=== PATIENT | female | born 1995 | race Caucasian/White ===

== ENCOUNTER 2017-02-07 23:03 | Emergency (ER) | payer MEDICAID ==
[~2017-02-07] VITALS: Ht 165.1 cm; Wt 79.0 kg
[~2017-02-07 23:03] MED LIST: RANI150T4 PO
[2017-02-07] MEDS ORDERED: SODIUM CHLORIDE FLUSH 10ML SYR IVF ONE (23:30)
[2017-02-07] MEDS ORDERED: MORPHINE SULFATE 4 MG/ML, 1ML IVPush PRN (23:30)
[2017-02-07] MEDS ORDERED: SODIUM CHLORIDE 0.9% 1,000ML IVBOLUS ONE (23:30)
[2017-02-07] MEDS ORDERED: ONDANSETRON 2MG/ML, 2ML IVPush ONE (23:30)
[2017-02-07] MEDS ORDERED: ONDANSETRON 2MG/ML, 2ML ONE (23:37)
[2017-02-07] MEDS ORDERED: MORPHINE SULFATE 4 MG/ML, 1ML ONE (23:37)
[2017-02-08] MEDS ORDERED: TRAZ100T15 PO (00:05)
[2017-02-08] MEDS ORDERED: BIRTH CONTROL PO (00:05)
[2017-02-08] MEDS ORDERED: OMEP-110 PO (00:05)
[2017-02-08] MEDS ORDERED: DICY10CA3 PO (00:05)
[2017-02-08] MEDS ORDERED: PROM12.553 PO (00:05)
[2017-02-08 00:23] LABS: HEMATOCRIT 36.6 % (34.6-47.8); HEMOGLOBIN 12.3 g/dL (11.7-16.4); WHITE BLOOD COUNT 5.9 x10^3/uL (4.5-13.2)
[2017-02-08 00:34] LABS: ASPARTATE AMINO TRANSFERASE 18 U/L (15-37); BLOOD UREA NITROGEN 12 mg/dL (7-18)
[2017-02-08 00:45] VITALS: BP 106/73
== END 2017-02-08 01:19 | disposition home or self-care (01) ==
LOC: ED 23:59
DX: N30.00 Acute cystitis without hematuria (principal)
CPT/HCPCS: 36415; 80053; 81001; 83690; 84703; 85025; 87086; 87147; 96361; 96374; 96375; 99284; J2405; J7030

== ENCOUNTER 2017-10-23 20:40 | Emergency (ER) | payer MEDICAID ==
[~2017-10-23] VITALS: Ht 162.6 cm; Wt 85.3 kg
[~2017-10-23 20:40] MED LIST changes: +BIRTH CONTROL PO; +DICY10CA3 PO; +OMEP-110 PO; +PROM12.553 PO; +TRAZ100T15 PO
[2017-10-23 21:32] LABS: BASOPHILS # (AUTO) 0.04 x10^3/uL (0-0.1); BASOPHILS % (AUTO) 1 % (0-1); EOSINOPHILS # (AUTO) 0.06 x10^3/uL (0-0.4); EOSINOPHILS % (AUTO) 1 % (1-7); LYMPHOCYTES # (AUTO) 2.16 x10^3/uL (1-3.4); LYMPHOCYTES % (AUTO) 25 % (22-44); MD NO; MEAN CORPUSCULAR HEMOGLOBIN 29.8 pg (27.0-34.8); MEAN CORPUSCULAR HGB CONC 34.4 g/dL (32.4-35.8); MEAN CORPUSCULAR VOLUME 86.5 fL (80-100); MEAN PLATELET VOLUME 7.9 fL (7.4-10.4); MONOCYTES # (AUTO) 0.69 x10^3/uL (0.2-0.8); MONOCYTES % (AUTO) 8 % (2-9); NEUTROPHILS # (AUTO) 5.66 x10^3/uL (1.8-6.8); NEUTROPHILS % (AUTO) 66 % (42-75); PLATELET COUNT 216 x10^3/uL (130-400); RED BLOOD COUNT 4.18 x10^6/uL (3.82-5.3); RED CELL DISTRIBUTION WIDTH 13.2 % (9.6-15.2)
[2017-10-23 21:45] LABS: ALANINE AMINOTRANSFERASE 30 U/L (12-78); ALBUMIN 3.2 g/dL (3.4-5.0); ANION GAP 9 mmol/L (5-15); CALCIUM 8.8 mg/dL (8.5-10.1); CHLORIDE 107 mmol/L (98-107); CREATININE 0.61 mg/dL (0.55-1.02)
[2017-10-23 21:47] LABS: ALKALINE PHOSPHATASE 63 U/L (45-117); BILIRUBIN,TOTAL 0.3 mg/dL (0.2-1.0)
[2017-10-23 21:58] LABS: MICROSCOPIC INDICATED
[2017-10-23 21:59] LABS: CULTURE INDICATED? YES
[2017-10-23 22:58] VITALS: BP 122/76
== END 2017-10-23 23:02 | disposition home or self-care (01) ==
LOC: ED 22:56
DX: O26.891 Other specified pregnancy related conditions, first trimester (principal); R10.84 Generalized abdominal pain; M54.5 Low back pain; R82.71 Bacteriuria; Z3A.12 12 weeks gestation of pregnancy
CPT/HCPCS: 36415; 76801; 80053; 81001; 83690; 85025; 87086; 99285

== ENCOUNTER 2017-10-30 00:07 | Emergency (ER) | payer MEDICAID ==
[~2017-10-30] VITALS: Ht 162.6 cm; Wt 80.0 kg
[2017-10-30 01:05] LABS: BASOPHILS # (AUTO) 0.03 x10^3/uL (0-0.1); BASOPHILS % (AUTO) 0 % (0-1); EOSINOPHILS # (AUTO) 0.12 x10^3/uL (0-0.4); EOSINOPHILS % (AUTO) 1 % (1-7); LYMPHOCYTES # (AUTO) 2.16 x10^3/uL (1-3.4); LYMPHOCYTES % (AUTO) 26 % (22-44); MD NO; MEAN CORPUSCULAR HEMOGLOBIN 28.8 pg (27.0-34.8); MEAN CORPUSCULAR HGB CONC 33.3 g/dL (32.4-35.8); MEAN CORPUSCULAR VOLUME 86.6 fL (80-100); MEAN PLATELET VOLUME 8.1 fL (7.4-10.4); MONOCYTES % (AUTO) 7 % (2-9); NEUTROPHILS # (AUTO) 5.36 x10^3/uL (1.8-6.8); NEUTROPHILS % (AUTO) 65 % (42-75); PLATELET COUNT 218 x10^3/uL (130-400)
[2017-10-30 01:17] LABS: ANION GAP 7 mmol/L (5-15); CALCIUM 8.4 mg/dL (8.5-10.1); CHLORIDE 108 mmol/L (98-107); CREATININE 0.52 mg/dL (0.55-1.02)
[2017-10-30 01:53] VITALS: BP 112/68
== END 2017-10-30 01:54 | disposition home or self-care (01) ==
LOC: ED 00:36
DX: O26.891 Other specified pregnancy related conditions, first trimester (principal); K92.0 Hematemesis; Z3A.13 13 weeks gestation of pregnancy
CPT/HCPCS: 36415; 80048; 85025; 99284

== ENCOUNTER 2017-11-02 21:41 | Emergency (ER) | payer MEDICAID ==
[~2017-11-02] VITALS: Ht 162.6 cm; Wt 85.0 kg
[2017-11-02 23:17] LABS: BASOPHILS # (AUTO) 0.03 x10^3/uL (0-0.1); BASOPHILS % (AUTO) 0 % (0-1); EOSINOPHILS % (AUTO) 1 % (1-7); LYMPHOCYTES # (AUTO) 1.91 x10^3/uL (1-3.4); LYMPHOCYTES % (AUTO) 28 % (22-44); MD NO; MEAN CORPUSCULAR HEMOGLOBIN 29.9 pg (27.0-34.8); MEAN CORPUSCULAR HGB CONC 34.3 g/dL (32.4-35.8); MEAN CORPUSCULAR VOLUME 87.2 fL (80-100); MEAN PLATELET VOLUME 8.3 fL (7.4-10.4); MONOCYTES # (AUTO) 0.58 x10^3/uL (0.2-0.8); MONOCYTES % (AUTO) 9 % (2-9); NEUTROPHILS # (AUTO) 4.23 x10^3/uL (1.8-6.8); NEUTROPHILS % (AUTO) 62 % (42-75); PLATELET COUNT 207 x10^3/uL (130-400); RED BLOOD COUNT 4.12 x10^6/uL (3.82-5.3); RED CELL DISTRIBUTION WIDTH 12.9 % (9.6-15.2)
[2017-11-02 23:22] LABS: ALBUMIN 3.1 g/dL (3.4-5.0); ANION GAP 7 mmol/L (5-15); CHLORIDE 109 mmol/L (98-107); CREATININE 0.58 mg/dL (0.55-1.02)
[2017-11-03 00:19] VITALS: BP 111/76
== END 2017-11-03 00:21 | disposition home or self-care (01) ==
LOC: ED 21:56
DX: O26.891 Other specified pregnancy related conditions, first trimester (principal); Z3A.14 14 weeks gestation of pregnancy; R42 Dizziness and giddiness; M79.662 Pain in left lower leg; W19.XXXA Unspecified fall, initial encounter; Y93.89 Activity, other specified; Y99.8 Other external cause status; Y92.009 Unspecified place in unspecified non-institutional (private) residence as the place of occurrence of the external cause
CPT/HCPCS: 36415; 80048; 82040; 85025; 99285

== ENCOUNTER 2018-01-28 22:46 | Observation (INO) | payer MEDICAID ==
[~2018-01-28] VITALS: Ht 162.6 cm; Wt 86.4 kg
[~2018-01-28 22:46] MED LIST changes: +TRAZ-137 PO; -TRAZ100T15 PO
[2018-01-28 23:43] LABS: MICROSCOPIC INDICATED
[2018-01-28 23:56] LABS: AMPHETAMINE SCREEN, URINE Negative (Negative); BARBITURATE SCREEN, URINE Negative (Negative); BENZODIAZEPINE SCREEN, URINE Negative (Negative); CANNABINOID SCREEN, URINE Negative (Negative); COCAINE SCREEN, URINE Negative (Negative); METHADONE SCREEN, URINE Negative (Negative); OPIATE SCREEN, URINE Negative (Negative)
[2018-01-29] MEDS ORDERED: ONDANSETRON 2MG/ML, 2ML IVPush PRN
[2018-01-29] MEDS ORDERED: ONDANSETRON 2MG/ML, 2ML ONE (00:02)
[2018-01-29 00:06] LABS: BASOPHILS # (AUTO) 0.03 x10^3/uL (0-0.1); BASOPHILS % (AUTO) 0 % (0-1); EOSINOPHILS # (AUTO) 0.03 x10^3/uL (0-0.4); EOSINOPHILS % (AUTO) 0 % (1-7); LYMPHOCYTES # (AUTO) 0.95 x10^3/uL (1-3.4); LYMPHOCYTES % (AUTO) 14 % (22-44); MD NO; MEAN CORPUSCULAR HEMOGLOBIN 30.8 pg (27.0-34.8); MEAN CORPUSCULAR HGB CONC 34.5 g/dL (32.4-35.8); MEAN CORPUSCULAR VOLUME 89.4 fL (80-100); MEAN PLATELET VOLUME 8.1 fL (7.4-10.4); MONOCYTES # (AUTO) 0.61 x10^3/uL (0.2-0.8); MONOCYTES % (AUTO) 9 % (2-9); NEUTROPHILS # (AUTO) 5.15 x10^3/uL (1.8-6.8); NEUTROPHILS % (AUTO) 76 % (42-75); PLATELET COUNT 173 x10^3/uL (130-400); RED BLOOD COUNT 3.68 x10^6/uL (3.82-5.3); RED CELL DISTRIBUTION WIDTH 12.4 % (9.6-15.2)
[2018-01-29] MEDS: LACTATED RINGERS 1,000 ML IV SCH ×2 (00:14→00:58)
[2018-01-29 00:17] LABS: ALBUMIN 2.8 g/dL (3.4-5.0); ANION GAP 10 mmol/L (5-15); CALCIUM 8.1 mg/dL (8.5-10.1); CHLORIDE 109 mmol/L (98-107)
[2018-01-29 00:20] LABS: ALANINE AMINOTRANSFERASE 24 U/L (12-78); ALKALINE PHOSPHATASE 74 U/L (45-117); BILIRUBIN,TOTAL 0.4 mg/dL (0.2-1.0); CREATININE 0.58 mg/dL (0.55-1.02); TOTAL PROTEIN 6.7 g/dL (6.4-8.2)
[2018-01-29] MEDS ORDERED: PLEASE ENTER HEIGHT AND WEIGHT MC SCH (00:30)
[2018-01-30] MEDS ORDERED: LACTATED RINGERS 1,000 ML IV SCH (02:30)
== END 2018-01-29 02:20 | disposition home or self-care (01) ==
LOC: LDOP 22:46 → LDIP 01-29
PROVIDERS: ADMIT Obstetrics & Gynecology; ATTEND Obstetrics & Gynecology
DX: O26.892 Other specified pregnancy related conditions, second trimester (principal); R10.9 Unspecified abdominal pain; R19.7 Diarrhea, unspecified; Z3A.25 25 weeks gestation of pregnancy; Z79.899 Other long term (current) drug therapy
CPT/HCPCS: 36415; 59025; 80053; 80307; 81001; 85025; 87086; 96361; 96374; G0378; J2405; J7120; 96360

== ENCOUNTER 2019-01-29 23:42 | Emergency (ER) | payer MEDICAID ==
[~2019-01-29] VITALS: Ht 167.6 cm; Wt 97.5 kg
[2019-01-30 01:30] VITALS: BP 123/79
== END 2019-01-30 02:24 | disposition home or self-care (01) ==
LOC: ED 01-30 02:15
DX: K80.20 Calculus of gallbladder without cholecystitis without obstruction (principal); R42 Dizziness and giddiness; R10.11 Right upper quadrant pain; R11.2 Nausea with vomiting, unspecified
CPT/HCPCS: 36415; 71045; 76700; 80053; 83690; 84703; 85025; 93005; 99284

== ENCOUNTER 2019-01-31 23:38 | Emergency (ER) | payer MEDICAID ==
[~2019-01-31] VITALS: Ht 165.1 cm; Wt 98.0 kg
[2019-02-01 00:51] VITALS: BP 114/64
== END 2019-02-01 01:54 | disposition home or self-care (01) ==
LOC: ED 02-01 01:44
DX: K80.20 Calculus of gallbladder without cholecystitis without obstruction (principal); R10.11 Right upper quadrant pain
CPT/HCPCS: 36415; 76700; 80053; 81003; 81025; 83690; 85025; 99284; Q0162

== ENCOUNTER 2019-04-09 15:13 | Emergency (ER) | payer MEDICAID ==
[~2019-04-09] VITALS: Ht 165.1 cm; Wt 93.5 kg
--- NOTE | 2019-04-09 16:57 | NUR ---
TAX SERVICES SPECIALIST; PT TO ROOM FROM LOBBY,
--- NOTE | 2019-04-09 17:05 | NUR ---
DR BERNAL BS FOR EXAM
[2019-04-09] MEDS ORDERED: ONDANSETRON ODT 4 MG PO ONE (17:30)
--- NOTE | 2019-04-09 17:44 | NUR ---
RESTING QUIETLY ON BED, WATCHING TV. SON ASLEEP BETWEEN HER LEGS. SIDE RAILS UP X 2. SPOUSE AT BS.
[2019-04-09 17:50] LABS: BASOPHILS # (AUTO) 0.04 x10^3/uL (0-0.1); BASOPHILS % (AUTO) 1 % (0-1); EOSINOPHILS # (AUTO) 0.07 x10^3/uL (0-0.4); EOSINOPHILS % (AUTO) 1 % (1-7); LYMPHOCYTES # (AUTO) 1.82 x10^3/uL (1-3.4); LYMPHOCYTES % (AUTO) 25 % (22-44); MD NO; MEAN CORPUSCULAR HEMOGLOBIN 30.7 pg (27.0-34.8); MEAN CORPUSCULAR HGB CONC 34.2 g/dL (32.4-35.8); MEAN CORPUSCULAR VOLUME 89.6 fL (80-100); MEAN PLATELET VOLUME 8.9 fL (7.4-10.4); MONOCYTES # (AUTO) 0.39 x10^3/uL (0.2-0.8); MONOCYTES % (AUTO) 5 % (2-9); NEUTROPHILS # (AUTO) 5.13 x10^3/uL (1.8-6.8); NEUTROPHILS % (AUTO) 69 % (42-75); PLATELET COUNT 236 x10^3/uL (130-400); RED BLOOD COUNT 4.59 x10^6/uL (3.82-5.3)
[2019-04-09 17:56] LABS: ALBUMIN 3.7 g/dL (3.4-5.0); ANION GAP 8 mmol/L (5-15); CALCIUM 8.6 mg/dL (8.5-10.1); CHLORIDE 109 mmol/L (98-107)
[2019-04-09 17:58] LABS: ALANINE AMINOTRANSFERASE 40 U/L (12-78); ALKALINE PHOSPHATASE 62 U/L (45-117); BILIRUBIN,TOTAL 0.6 mg/dL (0.2-1.0); CREATININE 0.89 mg/dL (0.55-1.02); TOTAL PROTEIN 7.8 g/dL (6.4-8.2)
--- NOTE | 2019-04-09 18:24 | NUR ---
PT STATES SHE STARTED A NEW JOB, REPORTS CHEMICAL FUMES AT WORK. C/O PERIODIC VOMITING & NAUSEA X 1-1/2 MONTHS. ABD PAIN LUQ LAST NOC X 1 HR, VOMITED YESTERDAY. ABD PAIN CURRENTLY 10/25. DENIES NAUSEA CURRENTLY. LAST BM: YESTERDAY. LAST ORAL INTAKE: MIDNIGHT 04/09/19. LMP: 03/20/19. MIDOL (LAST DOSE: MIDNIGHT 04/09/19) & TYLENOL (LAST DOSE: SUNDAY) TAKEN FOR SX. 05/22/2018, VIKKI 02/19/2019.
[2019-04-09] MEDS ORDERED: NORG1TAB90 PO (18:34)
--- NOTE | 2019-04-09 18:35 | NUR ---
PT DENIES NAUSEA CURRENTLY; ZOFRAN HELD, FOR NOW
[2019-04-09 18:43] LABS: HCG UR SG 1.026 (1.003-1.030); MICROSCOPIC NOT IND
[2019-04-09 18:51] LABS: CULTURE INDICATED? NO
[2019-04-09 19:14] VITALS: BP 119/77
--- NOTE | 2019-04-09 19:14 | NUR ---
DENIES THE NEED FOR NAUSEA MEDICATION. IS ASKING FOR ICE WATER. INST ON NPO STATUS.
== END 2019-04-09 20:16 | disposition home or self-care (01) ==
LOC: ED 19:50
DX: R11.2 Nausea with vomiting, unspecified (principal); R42 Dizziness and giddiness
CPT/HCPCS: 36415; 80053; 81003; 81025; 85025; 99283

== ENCOUNTER 2020-09-04 20:59 | Emergency (ER) | payer MEDICAID ==
[~2020-09-04] VITALS: Ht 162.6 cm; Wt 102.4 kg
[~2020-09-04 20:59] MED LIST changes: +NORG1TAB90 PO; -TRAZ-137 PO; +TRAZ-175 PO
--- NOTE | 2020-09-04 21:35 | NUR ---
PATIENT AMBULATED TO BATHROOM WITH STEADY GAIT. FLACC 0. REPORTS 5/10 DISCOMFORT IN LEFT LATERAL SIDE FOR ~ 7 MONTHS INTERMITTENTLY SINCE IUD PLACED. UA COLLECTED AND WALKED TO LAB BY THIS RN. CALL YUAN IN REACH. VS REMAIN STABLE. WILL CONTINUE TO MONITOR.
[2020-09-04 21:38] LABS: MICROSCOPIC NOT IND
[2020-09-04] MEDS ORDERED: KETOROLAC 30 MG/1 ML ONE (21:44)
[2020-09-04] MEDS ORDERED: METHOCARBAMOL 750 MG TABLET ONE (21:44)
--- NOTE | 2020-09-04 21:47 | NUR ---
PATIENT BEING TRANSFERRED TO US BY TECH. WILL ADMIN MEDICATIONS ON RETURN
[2020-09-04 21:50] LABS: BASOPHILS % (AUTO) 1 % (0-1); EOSINOPHILS % (AUTO) 2 % (1-7); LYMPHOCYTES % (AUTO) 36 % (22-44); MEAN CORPUSCULAR HEMOGLOBIN 28.2 pg (27.0-34.8); MEAN CORPUSCULAR HGB CONC 34.7 g/dL (32.4-35.8); MEAN PLATELET VOLUME 7.6 fL (7.4-10.4); MONOCYTES % (AUTO) 12 % (2-9); NEUTROPHILS % (AUTO) 50 % (42-75); PLATELET COUNT 197 x10^3/uL (130-400); RED BLOOD COUNT 4.34 x10^6/uL (3.82-5.3); RED CELL DISTRIBUTION WIDTH 17.1 % (9.6-15.2)
[2020-09-04 21:51] LABS: MD NO
[2020-09-04 21:59] LABS: ALANINE AMINOTRANSFERASE 39 U/L (12-78); ANION GAP 5 mmol/L (5-15); CHLORIDE 110 mmol/L (98-107); CREATININE 0.77 mg/dL (0.55-1.02)
[2020-09-04] MEDS ORDERED: METHOCARBAMOL 750 MG TABLET PO ONE (22:00)
[2020-09-04] MEDS ORDERED: KETOROLAC 30 MG/1 ML IM ONE (22:00)
[2020-09-04 22:04] LABS: ALKALINE PHOSPHATASE 94 U/L (45-117); BILIRUBIN,TOTAL 0.9 mg/dL (0.2-1.0); TOTAL PROTEIN 7.6 g/dL (6.4-8.2)
--- NOTE | 2020-09-04 22:23 | NUR ---
PATIENT RETURNED FROM US. MEDS ORDERED ADMINISTERED. SPOUSE AT BEDSIDE. WILL CONTINUE TO MONITOR.
--- NOTE | 2020-09-04 22:56 | NUR ---
DISCHARGE INSTRUCTIONS REVIEWED WITH PATIENT AND S/O AT BEDSIDE. PATIENT IS AWARE OF RESTRICTIONS OF DRIVING, OPERATING HEAVY MACHINERY AND ETOH CONSUMPTION AFTER BEING ADMINITSERED ROBAXIN THIS EVENING. PRESCRIPTION HANDED DIRECTLY TO PATIENT. NO IV PLACED DURING THIS ER VISIT. ALL PERSONAL BELONGINGS WITH PATIENT ON DC. STEADY GAIT TO LOBBY
[2020-09-04 22:57] VITALS: BP 115/75
== END 2020-09-04 23:04 | disposition home or self-care (01) ==
LOC: ED 22:58
DX: S39.012A Strain of muscle, fascia and tendon of lower back, initial encounter (principal); R10.32 Left lower quadrant pain; R11.2 Nausea with vomiting, unspecified; X58.XXXA Exposure to other specified factors, initial encounter; Y93.89 Activity, other specified; Y92.89 Other specified places as the place of occurrence of the external cause; Y99.8 Other external cause status
CPT/HCPCS: 36415; 76830; 80053; 81003; 84703; 85025; 96372; 99284; J1885

== ENCOUNTER 2020-10-07 20:48 | Emergency (ER) | payer MEDICAID ==
[~2020-10-07] VITALS: Ht 162.6 cm; Wt 101.7 kg
--- NOTE | 2020-10-07 21:09 | NUR ---
CC OF FULL BACK "SEIZING UP" ALL DAY 11/25 PAIN. PT STATES SHE WORKS NIGHTS AT [employer] AND WALKS TO AND FROM WORK AND IS ON HER FEET ALL DAY. PT STATES HER BACK HAS BEEN HURTING SINCE SHE WOKE UP AND SHE HAD DIFFICULTY SHOWERING. SO AT BEDSIDE
[2020-10-07] MEDS ORDERED: DIAZEPAM 5 MG TABLET PO ONE (21:30)
[2020-10-07] MEDS ORDERED: KETOROLAC 30 MG/1 ML IM ONE (21:30)
[2020-10-07] MEDS ORDERED: DIAZEPAM 5 MG TABLET ONE (21:37)
[2020-10-07] MEDS ORDERED: KETOROLAC 60 MG/2 ML ONE (21:37)
--- NOTE | 2020-10-07 22:29 | NUR ---
PT AND SO BOTH ASLEEP IN ROOM. PTS RESP EVEN AND UNLABORED.
[2020-10-07 23:45] VITALS: BP 100/52
== END 2020-10-07 23:47 | disposition home or self-care (01) ==
LOC: ED 21:18
DX: M54.5 Low back pain (principal); M62.830 Muscle spasm of back
CPT/HCPCS: 72110; 96372; 99283; J1885; J7512